=== PATIENT | female | born 1990 | race Caucasian/White ===

== ENCOUNTER 2024-01-12 14:46 | Inpatient (IN) | payer BC ==
[2024-01-12 21:25] VITALS: BMI 45.7
[2024-01-12] MEDS ORDERED: hydrALAZINE 20 MG/ML VIAL SLOW IVP PRN (22:08)
[2024-01-12] MEDS ORDERED: Ondansetron PF 4 MG/2 ML Vial IVP PRN (22:08)
[2024-01-12] MEDS ORDERED: Promethazine HCl 25 MG/ML VIAL IM PRN (22:08)
[2024-01-12] MEDS ORDERED: Lidocaine 1% (PF) 30 ML VIAL SC PRN (22:08)
[2024-01-12] MEDS ORDERED: Misoprostol 200 MCG TAB PR PRN (22:08)
[2024-01-12] MEDS ORDERED: Methylergonovine 0.2 MG/ML VIAL IM PRN (22:08)
[2024-01-12] MEDS ORDERED: Diphenoxylate HCl/Atropine Tablet PO PRN ×2 (22:08)
[2024-01-12] MEDS ORDERED: Zolpidem Tartrate 5 MG TAB PO PRN (22:08)
[2024-01-12] MEDS ORDERED: Docusate 100 MG CAP PO PRN (22:08)
[2024-01-12] MEDS ORDERED: Ibuprofen 800 MG TAB PO PRN (22:08)
[2024-01-12] MEDS ORDERED: Carboprost 250 MCG/ML AMP IM PRN (22:08)
[2024-01-12] MEDS ORDERED: HYDROcodone/Acetaminophen 5/325 mg Tablet PO PRN ×2 (22:08)
[2024-01-12] MEDS ORDERED: fentaNYL 50 mcg/mL 1 mL Vial SLOW IVP PRN (22:08)
[2024-01-12] MEDS ORDERED: Oxytocin 30 units/NS 500 ML 500 ML IV SCH ×2 (22:08)
[2024-01-12 22:27] LABS: Hematocrit 33.3 % (34.9-44.5); Hemoglobin 10.8 g/dL (12.0-15.5); Mean Corpuscular HGB CONC 32.4 g/dL (32.0-36.0); Mean Corpuscular Hemoglobin 28.4 pg (27.0-33.0); Mean Corpuscular Volume 87.6 fL (81.6-98.3); Mean Platelet Volume 9.8 fL (7.4-10.4); Platelet Count 254 10x3/uL (150-450); RBC Distribution Width 14.8 % (11.5-14.5); White Blood Cell (WBC) Count 9.3 10x3/uL (3.5-10.5)
[2024-01-12 23:28] LABS: HBsAg Index 0.23 S/CO (0-0.99); HIV (1/2) Antibody/Antigen Non-Reactive (NonReactive); HIV 1/2 INDEX 0.07 S/CO (<1.00); Hep B Surf Ag - L&D Non-Reactive S/CO (NonReactive)
[2024-01-12 23:29] LABS: Syphilis Antibody Nonreactive (Nonreactive); Syphilis Antibody Index 0.04 S/CO (<1.00 Non-Reactive)
[2024-01-13] MEDS ORDERED: diphenhydrAMINE 50 MG/ML VIAL IVP PRN (10:16)
[2024-01-13] MEDS ORDERED: ePHEDrine Sulfate 50 MG/10 ML VIAL SLOW IVP PRN (10:16)
[2024-01-13] MEDS ORDERED: Ondansetron PF 4 MG/2 ML Vial IVP PRN (10:16)
[2024-01-13] MEDS ORDERED: Acetaminophen 325 MG TAB PO PRN (10:16)
[2024-01-13] MEDS ORDERED: Naloxone HCl 0.4 mg/ml Vial IVP PRN ×2 (10:16)
[2024-01-13] MEDS ORDERED: Promethazine HCl 25 MG/ML VIAL IM PRN (10:16)
[2024-01-13] MEDS ORDERED: Moisturizing Cream (Eucerin) 113 GM JAR TOP PRN (10:16)
[2024-01-13] MEDS ORDERED: Communication Order-Pharmacy FS SCH (10:30)
[2024-01-13] MEDS ORDERED: Lactated Ringer's 500 ML IV PRN (10:40)
[2024-01-13] MEDS: Oxytocin 30 units/NS 500 ML 500 ML IV SCH (14:06)
[2024-01-13] MEDS: fentaNYL 2 mcg/Ropivacaine 0.2% Epidural 100 ML CADD EPIDURAL SCH (14:06)
[2024-01-13] MEDS: Misoprostol 100 MCG TAB VAG SCH (14:07)
[2024-01-13] MEDS: fentaNYL/Ropivacaine Epidural 100 ML ONE (14:07)
[2024-01-13] MEDS: Lactated Ringer's 1,000 ML IV SCH (14:08)
[2024-01-14] MEDS: Ampicillin 2 GM in Sodium Chloride 0.9% 100 ML IVPB SCH (02:51)
[2024-01-14] MEDS: Acetaminophen 500 MG TAB PO SCH (02:51)
[2024-01-14 04:36] LABS: Analyzer IN Cardio CS NICU; Critical Notified By: clumpkins rt; RapidComm Collect By LDRN
[2024-01-14 04:39] LABS: Analyzer IN Cardio CS NICU; Critical Notified By: clumpkins rt; RapidComm Collect By LD RN; pH (Cord, venous) 7.373 (7.250-7.350)
[2024-01-14] MEDS ORDERED: Ondansetron PF 4 MG/2 ML Vial IVP PRN ×3 (05:33→05:40)
[2024-01-14] MEDS ORDERED: diphenhydrAMINE 25 MG CAP PO PRN (05:33)
[2024-01-14] MEDS ORDERED: hydrALAZINE 20 MG/ML VIAL SLOW IVP PRN (05:33)
[2024-01-14] MEDS ORDERED: Lanolin Ointment 7 GM TUBE TOP PRN (05:33)
[2024-01-14] MEDS ORDERED: fentaNYL 50 mcg/mL 1 mL Vial SLOW IVP PRN (05:40)
[2024-01-14] MEDS ORDERED: Moisturizing Cream (Eucerin) 113 GM JAR TOP PRN (05:40)
[2024-01-14] MEDS ORDERED: Promethazine HCl 25 MG/ML VIAL IM PRN (05:40)
[2024-01-14] MEDS ORDERED: Naloxone HCl 0.4 mg/ml Vial IV PRN (05:40)
[2024-01-14] MEDS ORDERED: Naloxone HCl 0.4 mg/ml Vial IVP PRN ×2 (05:40)
[2024-01-14] MEDS ORDERED: Meperidine HCl/PF 25 MG (1 mL) VIAL SLOW IVP PRN (05:40)
[2024-01-14] MEDS ORDERED: diphenhydrAMINE 50 MG/ML VIAL IVP PRN (05:40)
[2024-01-14] MEDS ORDERED: Communication Order-Pharmacy FS SCH (05:45)
[2024-01-14] MEDS ORDERED: Ketorolac Tromethamine 30 MG (1 mL) VIAL IVP SCH (05:45)
[2024-01-14 06:53] LABS: Hematocrit 30.4 % (34.9-44.5)
[2024-01-14] MEDS: Erythromycin Base 0.5% Oint 1 GM TUBE ONE (09:00)
[2024-01-14] MEDS: Hepatitis B Vaccine 10 MCG/0.5 ML SYR ONE (09:00)
[2024-01-14] MEDS: Dexmedetomidine 200 MCG/2 ML VIAL ONE (09:01)
[2024-01-14] MEDS: Metoclopramide HCl 10 MG (2 mL) VIAL ONE (09:01)
[2024-01-14] MEDS: Azithromycin 500 MG VIAL ONE (09:01)
[2024-01-14] MEDS: Morphine PF 10 MG/10 ML VIAL ONE (09:01)
[2024-01-14] MEDS: Dexamethasone 10 MG/ML VIAL ONE (09:01)
[2024-01-14] MEDS: Promethazine HCl 25 MG/ML VIAL ONE (09:01)
[2024-01-14] MEDS: Phytonadione Neonatal 1 MG/0.5 ML AMP ONE (09:01)
[2024-01-14] MEDS: Ketorolac Tromethamine 30 MG (1 mL) VIAL IVP SCH (09:02)
[2024-01-14] MEDS: Oxytocin 10 UNITS/ML VIAL ONE (09:02)
[2024-01-14] MEDS: PHENYLEPHRINE-NS 100 MCG/ML 10 ML SYRINGE ONE ×2 (09:02)
[2024-01-14] MEDS: Ampicillin/Sulbactam 3 GM in Sodium Chloride 0.9% 100 ML IVPB SCH ×2 (09:02→15:12)
[2024-01-14] MEDS: Boostrix 0.5 ML (Tdap) VIAL (>/=7 yrs of age) IM ONE (09:02)
[2024-01-14] MEDS: Prenatal Vitamin 1 TAB PO SCH (09:03)
[2024-01-14] MEDS ORDERED: HYDROcodone/Acetaminophen 5/325 mg Tablet PO PRN (17:46)
[2024-01-15 05:30] LABS: Hematocrit 26.1 % (34.9-44.5); Hemoglobin 8.6 g/dL (12.0-15.5); Mean Corpuscular Hemoglobin 29.5 pg (27.0-33.0); Mean Corpuscular Volume 89.4 fL (81.6-98.3); Mean Platelet Volume 9.9 fL (7.4-10.4); Platelet Count 233 10x3/uL (150-450); RBC Distribution Width 15.2 % (11.5-14.5); Red Blood Cell (RBC) Count 2.92 10x6/uL (3.90-5.03); White Blood Cell (WBC) Count 12.4 10x3/uL (3.5-10.5)
[2024-01-15] MEDS: HYDROcodone/Acetaminophen 5/325 mg Tablet PO PRN (08:31)
[2024-01-15] MEDS: Ibuprofen 800 MG TAB PO SCH (15:36)
[2024-01-17 10:11] VITALS: BP 135/75; TEMP 98.7
== END 2024-01-17 13:55 | disposition home or self-care (01) | DRG 787 ==
LOC: CSHLD 20:53 → CSHPP 01-14 08:05
PROVIDERS: ADMIT Obstetrics & Gynecology; ATTEND Obstetrics & Gynecology
PROC: 10907ZC Drainage of Amniotic Fluid, Therapeutic from Products of Conception, Via Natural or Artificial Opening (ICD-10-PCS; 2024-01-13)
PROC: 10H07YZ Insertion of Other Device into Products of Conception, Via Natural or Artificial Opening (ICD-10-PCS; 2024-01-13)
PROC: 10D00Z1 Extraction of Products of Conception, Low, Open Approach (ICD-10-PCS; principal; 2024-01-14)
DX: O99.02 Anemia complicating childbirth (principal); O75.2 Pyrexia during labor, not elsewhere classified; Z3A.39 39 weeks gestation of pregnancy; Z37.0 Single live birth; O76 Abnormality in fetal heart rate and rhythm complicating labor and delivery; O62.1 Secondary uterine inertia; Z90.89 Acquired absence of other organs; O33.9 Maternal care for disproportion, unspecified
CPT/HCPCS: 36415; 51702; 82805; 85014; 85018; 85027; 86780; 86850; 86900; 86901; 87340; 87389; 88307; C1889; J0290; J0295; J1100; J1885; J2274; J2550; J2590; J2765; J7120